=== PATIENT | female | born 1980 | race Hispanic/Latino ===

== ENCOUNTER 2019-04-01 13:48 | Emergency (ER) | payer OTHER ==
--- NOTE | 2019-04-01 14:20 | Emergency Department Report ---
<DANGELO LAW - Last Filed: 04/01/19 18:56> ED Abdominal Pain HPI - General Chief Complaint: Abdominal Pain Stated Complaint: ABDOMINAL PAIN Time Seen by Provider: 04/01/19 14:17 Source: patient, EMS Mode of arrival: Stretcher Limitations: No Limitations - History of Present Illness Initial Comments: 39 YO IN [place] FOR WORK; FROM [place]. COMES TO ER WITH EPIGASTRIC ABS PAIN. NO VOMITING. POS NAUSEA. NO DIARRHEA. NO BLOODY STOOLS. DENIES FEVER OR CHILLS. DID NOT EAT ANYTHING DIFFERENT. HAD A GRANULA BAR EARLIER TODAY. RX ADDEROL PMH A/C ABD PAIN INTERSUS. COLON RESECTION X 2 "TACKING OF INTESTINES TO ABD WALL" PER PT. DR BUCHANAN IN [place] IS HER MD. SHE TOOK NO MEDS REGISTERED NURSE RENAL MD Complaint: abdominal pain -: Sudden, hour(s) Location: epigastric Migration to: no migration Quality: stabbing, burning Consistency: intermittent Improves With: nothing Worsens With: nothing Associated Symptoms: denies other symptoms - Related Data Previous Rx's Medication Instructions Recorded Last Taken Type Fluconazole [Diflucan TAB] 100 mg PO QDAY #1 tablet 04/01/19 Unknown Rx Ibuprofen [Motrin] 800 mg PO Q8HR PRN #30 tablet 04/01/19 Unknown Rx Silver Sulfadiazine [Ssd] 400 gm TP BID #1 each 04/01/19 Unknown Rx Allergies Allergy/AdvReac Type Severity Reaction Status Date / Time No Known Allergies Allergy Unverified 04/01/19 13:57 ED Review of Systems Comment: All other systems reviewed and negative ED Past Medical Hx - Past Medical History Previous Medical History?: Yes Additional medical history: small bowel obst. adhd - Surgical History Past Surgical History?: Yes Additional Surgical History: colon resections - Family History Family history: no significant - Social History Smoking Status: Never Smoker Substance Use Type: None - Medications Home Medications: Home Medications Medication Instructions Recorded Confirmed Last Taken Type Fluconazole [Diflucan TAB] 100 mg PO QDAY #1 tablet 04/01/19 Unknown Rx Ibuprofen [Motrin] 800 mg PO Q8HR PRN #30 tablet 04/01/19 Unknown Rx Silver Sulfadiazine [Ssd] 400 gm TP BID #1 each 04/01/19 Unknown Rx ED Physical Exam - General Limitations: No Limitations General appearance: alert - Head Head exam: Present: normocephalic - Eye Eye exam: Present: normal appearance, PERRL - ENT ENT exam: Present: mucous membranes moist - Neck Neck exam: Present: normal inspection - Respiratory Respiratory exam: Present: normal lung sounds bilaterally - Cardiovascular Cardiovascular Exam: Present: regular rate - GI/Abdominal GI/Abdominal exam: Present: soft, tenderness, normal bowel sounds. Absent: distended, guarding, rebound, rigid, diminished bowel sounds, hyperactive bowel sounds, hypoactive bowel sounds, bruit, pulsatile mass, hernia - Rectal Rectal exam: Present: deferred - Extremities Exam Extremities exam: Present: normal inspection, full ROM - Back Exam Back exam: Present: normal inspection, full ROM - Neurological Exam Neurological exam: Present: alert, oriented X3, CN II-XII intact - Psychiatric Psychiatric exam: Present: normal affect, normal mood - Skin Skin exam: Present: warm, dry, intact ED Course - Reevaluation(s) Reevaluation #1: 04/01/19 17:[address] AT 1425- NOT YET DONE ED Medical Decision Making - Lab Data Result diagrams: 04/01/19 14:05 04/01/19 14:05 - Radiology Data Radiology results: report reviewed, image reviewed - Medical Decision Making Labs 04/01/19 04/01/19 14:05 14:05 WBC 11.5 H RBC 4.46 Hgb 13.1 Hct 40.1 MCV 90 MCH 29 MCHC 33 RDW 13.9 Plt Count 240 Lymph % (Auto) 10.7 L [place] % (Auto) 4.2 Eos % (Auto) 0.5 Baso % (Auto) 0.3 Lymph # 1.2 [place] # 0.5 Eos # 0.1 Baso # 0.0 Seg Neutrophils % 84.3 H Seg Neutrophils # 9.7 H Sodium 139 Potassium 4.6 Chloride 101.9 Carbon Dioxide 21 L Anion Gap 21 BUN 18 H Creatinine 0.6 L Estimated GFR > 60 BUN/Creatinine Ratio 30 Glucose 101 H Calcium 9.3 Total Bilirubin 0.30 AST 18 ALT 16 Alkaline Phosphatase 31 L Total Protein 7.6 Albumin 4.9 Albumin/Globulin Ratio 1.8 Vital Signs 04/01/19 13:58 Temperature 97.8 F Pulse Rate 81 Respiratory 16 Rate Blood Pressure 107/75 O2 Sat by Pulse [address] NOTED TREATED WITH ZOSYN FOR CONCERN OF INTRAABD INFECTION UA THEN NOTED GIVEN ROCEPHIN FOR GRAM POS NS/ZOFRAN/PAIN MEDS DC HOME WITH DC PLAN OF CARE AND FOLLOW UP. LOCAL REFERRALS GIVEN. ED Disposition Clinical Impression: Abdominal pain Qualifiers: Abdominal location: right lower quadrant Qualified Code(s): R10.31 - Right lower quadrant pain UTI (urinary tract infection) Qualifiers: Urinary tract infection type: acute cystitis Hematuria presence: without hematuria Qualified Code(s): N30.00 - Acute cystitis without hematuria Ovarian cyst Qualifiers: Laterality: bilateral Qualified Code(s): N83.201 - Unspecified ovarian cyst, right side; N83.202 - Unspecified ovarian cyst, left side Disposition: DC-01 TO HOME OR SELFCARE Is pt being admited?: No Does the pt Need Aspirin: No Condition: Stable Instructions: Abdominal Pain (ED) Additional Instructions: HYDRATE WELL WITH WATER CONTINUE HOME MEDS FOLLOW UP WITH GI MD WHEN YOU GET HOME LOCAL REFERRAL GIVEN MEDS ORDERED TODAY Prescriptions: Fluconazole [Diflucan TAB] 100 mg PO QDAY #1 tablet Ibuprofen [Motrin] 800 mg PO Q8HR PRN #30 tablet PRN Reason: Pain, Moderate (4-6) Silver Sulfadiazine [Ssd] 400 gm TP BID #1 each Referrals: PRIMARY CARE, [Primary Care Provider] - 3-5 Days [facility] [Outside] - 3-5 Days Time of Disposition: 15:13 <ELIZABET CEDENO - Last Filed: 04/01/19 19:46> ED Review of Systems ROS: Stated complaint: ABDOMINAL PAIN Other details as noted in HPI ED Course Vital Signs 04/01/19 04/01/19 13:58 16:35 Temperature 97.8 F 97.9 F Pulse Rate 81 81 Respiratory 16 18 Rate Blood Pressure 107/75 Blood Pressure 100/67 [Left] O2 Sat by Pulse 100 99 Oximetry ED Medical Decision Making - Lab Data Result diagrams: 04/01/19 14:05 04/01/19 14:05 Critical care attestation.: If time is entered above; I have spent that time in minutes in the direct care of this critically ill patient, excluding procedure time.
[2019-04-01] MEDS ORDERED: PROTAMINE SULFATE IV ONE (14:24)
[2019-04-01] MEDS ORDERED: NACL 0.9% IV ONE (14:24)
[2019-04-01] MEDS ORDERED: NACL 0.9% 1000 ML 1,000 ML IV ONE (14:24)
[2019-04-01] MEDS ORDERED: LIDOCAINE VISCOUS 2% PO ONE (14:25)
[2019-04-01] MEDS ORDERED: ALUM-MAG HYDROX-SIMETH 200-200-20MG/5ML PO ONE (14:25)
[2019-04-01 14:45] LABS: Basophils % (Auto) 0.3 % (0.0-1.8); Eosinophils # (Auto) 0.1 K/mm3 (0.0-0.4); Eosinophils % (Auto) 0.5 % (0.0-4.3); Hematocrit 40.1 % (30.3-42.9); Hemoglobin 13.1 gm/dl (10.1-14.3); Lymphocytes # (Auto) 1.2 K/mm3 (1.2-5.4); Lymphocytes % (Auto) 10.7 % (13.4-35.0); Mean Corpuscular HGB Conc 33 % (30-34); Mean Corpuscular Volume 90 fl (79-97); Monocytes # (Auto) 0.5 K/mm3 (0.0-0.8); Monocytes % (Auto) 4.2 % (0.0-7.3); Platelet Count 240 K/mm3 (140-440); Red Blood Count 4.46 M/mm3 (3.65-5.03); Red Cell Distribution Width 13.9 % (13.2-15.2)
[2019-04-01 14:56] LABS: Alanine Aminotransferase 16 units/L (7-56); Albumin 4.9 g/dL (3.9-5); BUN/Creatinine Ratio 30; Blood Urea Nitrogen 18 mg/dL (7-17); Calcium 9.3 mg/dL (8.4-10.2); Hemolysis Index 6
[2019-04-01] MEDS ORDERED: PROTONIX IV ONE (14:57)
[2019-04-01] MEDS ORDERED: ZOSYN/NS 3.375GM/50ML 3.375 GM/50 ML BAG IV ONE (16:00)
[2019-04-01 16:42] LABS: Bilirubin,Urine Negative (Negative); Blood,Urine Small (Negative); Color,Urine Yellow (Yellow)
[2019-04-01 16:43] LABS: Protein,Urine <15 mg/dL mg/dL (Negative); Urobilinogen,Urine < 2.0 mg/dL (<2.0)
[2019-04-01] MEDS ORDERED: ZOFRAN IV ONE (17:00)
[2019-04-01 17:01] LABS: HCG Qualitative,Urine Negative (Negative)
[2019-04-01] MEDS ORDERED: MORPHINE IV ONE (17:02)
[2019-04-01] MEDS ORDERED: ROCEPHIN/NS 1 GM/50 ML 1 GM/50 ML BAG IV ONE (18:38)
--- NOTE | 2019-04-01 19:35 | Cat Scan Report ---
CT ABDOMEN AND PELVIS WITH IV CONTRAST INDICATION: ABD PAIN. COMPARISON: None available. TECHNIQUE: All CT scans at this facility use dose modulation, automated exposure control, iterative reconstructi on or weight based dosing, when appropriate, to reduce radiation dose to as low as reasonably achieva ble. FINDINGS: Lung Bases: No significant abnormality. Skeletal System: No acute abnormality. ABDOMEN: Liver: No significant abnormality. Gallbladder: No significant abnormality. Bile Ducts: No significant abnormality. Pancreas: No significant abnormality. Spleen: No significant abnormality. Adrenals: No significant abnormality. Right Kidney: No significant abnormality. Left Kidney: No significant abnormality. Upper GI tract: No small bowel or gastric distention. Lymph Nodes: No significant adenopathy. Aorta: No significant abnormality. Additional Findings: There is approximately 270 degrees of twisting of the mesenteric vessels (as see n around axial image 48 of series 4). PELVIS: Colon: No acute abnormality. Urinary Bladder and Distal Ureters: No significant abnormality. Appendix: Not visualized. Lymph Nodes: No significant adenopathy. Additional Findings: There is a 2.5 cm right ovarian cyst. Prominent left ovarian/periuterine veins a re noted. IUD is noted in expected position. There is trace free fluid in the cul-de-sac. IMPRESSION: 1. No bowel obstruction or acute inflammatory process is seen. 2. Right ovarian cyst and trace free fluid in the cul-de-sac may be physiologic. 3. There is mild twisting of the mesenteric vessels but no bowel obstruction or pneumatosis is seen. This could be related to prior surgeries. 4. There are prominent left ovarian/periuterine veins which could be seen in the setting of pelvic co ngestion syndrome, correlate clinically. Signer Name: Félix Walls MD Signed: 04/01/2019 7:31 PM Workstation Name: [id number]
[2019-04-01] MEDS ORDERED: TYLENOL PO ONE (19:50)
[2019-04-01] MEDS ORDERED: TYLENOL ONE (19:53)
[2019-04-01 20:05] VITALS: BP 106/62
== END 2019-04-01 20:04 | disposition home or self-care (01) ==
LOC: ED 13:48
DX: N83.201 Unspecified ovarian cyst, right side (principal); N39.0 Urinary tract infection, site not specified; Z87.19 Personal history of other diseases of the digestive system; Z79.899 Other long term (current) drug therapy
CPT/HCPCS: 36415; 74177; 80053; 81001; 81025; 83690; 85025; 87086; 96365; 96367; 96375; 99284; C9113; J0696; J2270; J2405; J2543; J7030; Q9967; 96361; J2720